=== PATIENT | female | born 1980 | race Two or more races ===

== ENCOUNTER 2017-02-13 13:06 | Emergency (ER) | payer OTHER ==
[~2017-02-13] VITALS: Ht 165.1 cm; Wt 90.7 kg
[~2017-02-13 13:06] MED LIST: HYDR25TA4 PO; LEVO75TA11 PO
--- NOTE | 2017-02-13 13:47 | NUR ---
MADI FROM HOME DT VAGINAL SPOTTING AND ABDOMINAL CRAMPS,. PATIENT IS 3 WEEKS PREGANANT. PATIENT IN NO DISTRESS. AFEBRILE. VSS
[2017-02-13 13:58] LABS: BASOPHILS % (AUTO) 0.2 % (0.0-2.0); EOSINOPHILS # (AUTO) 0.1 /CMM (0.0-0.7); EOSINOPHILS % (AUTO) 0.7 % (0.0-6.0); HEMATOCRIT 39 % (33-45); HEMOGLOBIN 13.4 g/dL (11.5-14.8); LYMPHOCYTES # (AUTO) 2.1 /CMM (0.8-4.8); LYMPHOCYTES % (AUTO) 27.2 % (20.0-44.0); MEAN CORPUSCULAR HEMOGLOBIN 30 PG (26.0-33.0); MEAN CORPUSCULAR HGB CONC 34 g/dl (31.0-36.0); MEAN CORPUSCULAR VOLUME 89 fL (82-100); MONOCYTES # (AUTO) 0.3 /CMM (0.1-1.30); MONOCYTES % (AUTO) 4.2 % (2.0-12.0); NEUTROPHILS # (AUTO) 5.2 /CMM (1.8-8.9); NEUTROPHILS % (AUTO) 67.7 % (43.0-81.0); PLATELET COUNT (AUTO) 400 /CMM (150-450); RDW COEFFICIENT OF VARIATION 11.7 (11.5-15.0); RED BLOOD CELL COUNT(AUTO) 4.41 MIL/uL (4.0-5.2); WHITE BLOOD COUNT (AUTO) 7.7 K/uL (4.3-11.0)
[2017-02-13] MEDS ORDERED: IV NS 0.9% 1,000 ML BAG IV ONE (14:00)
[2017-02-13 14:07] LABS: CALCIUM, SERUM 8.6 mg/dL (8.5-10.1); CREATININE 0.6 mg/dL (0.6-1.3); POTASSIUM 4.2 mmol/L (3.5-5.1)
[2017-02-13 14:11] LABS: INR 0.84 (0.87-1.13); PROTHROMBIN TIME 8.7 SECS (9.5-12.7)
--- NOTE | 2017-02-13 15:25 | NUR ---
IV removed. Catheter intact and site benign. Pressure and 4x4 applied to site. No bleeding noted.
--- NOTE | 2017-02-13 15:25 | NUR ---
Patient discharged to home in stable condition. Written and verbal after care instructions given. Patient verbalizes understanding of instruction.
[2017-02-13 15:49] VITALS: BP 160/89
== END 2017-02-13 15:49 | disposition home or self-care (01) ==
LOC: ER 13:08
DX: N93.8 Other specified abnormal uterine and vaginal bleeding (principal); I10 Essential (primary) hypertension; E11.9 Type 2 diabetes mellitus without complications; Z90.49 Acquired absence of other specified parts of digestive tract
CPT/HCPCS: 36415; 76856; 80048; 84702; 85025; 85730; 96360; 99285; A4606; Z7610

== ENCOUNTER 2017-02-24 14:53 | Emergency (ER) | payer OTHER ==
[~2017-02-24] VITALS: Ht 152.4 cm; Wt 89.8 kg
--- NOTE | 2017-02-24 15:11 | NUR ---
PT BIBRA TO ER BED 09. 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 WAS GIVEN NITRO AND ASP W/ MINIMAL RELIEF. PT IS ALSO C/O ABDOMINAL DISCOMFORT. SYMPTOMS STARTED AFTER SMOKING A CIGARETTE WHICH SHE SUSPECTS THAT ITS LACED. GOWNED AND PLACED ON MONITOR. NAD NOTED. AWAITING MD SILVERMAN.
--- NOTE | 2017-02-24 15:25 | NUR ---
DR CORREIA AT BEDSIDE FOR EVAL.
--- NOTE | 2017-02-24 15:42 | NUR ---
PIPE FITTER MARINE AT BEDSIDE FOR BLOOD DRAW.
[2017-02-24 15:51] LABS: BASOPHILS % (AUTO) 0.5 % (0.0-2.0); EOSINOPHILS # (AUTO) 0.1 /CMM (0.0-0.7); EOSINOPHILS % (AUTO) 1.2 % (0.0-6.0); HEMATOCRIT 43 % (33-45); HEMOGLOBIN 14.6 g/dL (11.5-14.8); LYMPHOCYTES # (AUTO) 2.2 /CMM (0.8-4.8); LYMPHOCYTES % (AUTO) 24.8 % (20.0-44.0); MEAN CORPUSCULAR HEMOGLOBIN 31 PG (26.0-33.0); MEAN CORPUSCULAR HGB CONC 34 g/dl (31.0-36.0); MEAN CORPUSCULAR VOLUME 90 fL (82-100); MONOCYTES # (AUTO) 0.3 /CMM (0.1-1.30); NEUTROPHILS # (AUTO) 6.2 /CMM (1.8-8.9); NEUTROPHILS % (AUTO) 70.5 % (43.0-81.0); PLATELET COUNT (AUTO) 418 /CMM (150-450); RDW COEFFICIENT OF VARIATION 11.7 (11.5-15.0); RED BLOOD CELL COUNT(AUTO) 4.74 MIL/uL (4.0-5.2); WHITE BLOOD COUNT (AUTO) 8.8 K/uL (4.3-11.0)
[2017-02-24 16:00] LABS: CALCIUM, SERUM 8.9 mg/dL (8.5-10.1); CARBON DIOXIDE 29 mmol/L (21-32); CHLORIDE 104 mmol/L (98-107); CREATININE 0.7 mg/dL (0.6-1.3); GLUCOSE 110 mg/dL (74-106); SODIUM SERUM 139 mmol/L (136-145); UREA NITROGEN, BLOOD 27 mg/dL (7-18)
[2017-02-24 16:01] LABS: ALCOHOL, BLOOD < 3 mg/dL (0-0)
--- NOTE | 2017-02-24 16:31 | NUR ---
Patient discharged to home in stable condition. Written and verbal after care instructions given. Patient verbalizes understanding of instruction.IV removed. Catheter intact and site benign. Pressure and 4x4 applied to site. No bleeding noted.
[2017-02-24 16:32] VITALS: BP 125/84
== END 2017-02-24 16:34 | disposition home or self-care (01) ==
LOC: ER 14:57
DX: F15.10 Other stimulant abuse, uncomplicated (principal); R07.89 Other chest pain; I10 Essential (primary) hypertension; E11.9 Type 2 diabetes mellitus without complications; Z90.49 Acquired absence of other specified parts of digestive tract
CPT/HCPCS: 36415; 80048; 80305; 85025; 93005; 99285; A4606; G0480; Z7610

== ENCOUNTER 2017-06-23 16:14 | Emergency (ER) | payer OTHER ==
[~2017-06-23] VITALS: Ht 152.4 cm; Wt 131.5 kg
--- NOTE | 2017-06-23 16:28 | NUR ---
37 yo female bb ra from home. patient is alert and oriented, patient states at 1440 today she was unable to lift her right arm and her right leg. no facial deficit noted at this time. patient gowned,placed on conveyor monitor. awaiting order from provider
--- NOTE | 2017-06-23 16:30 | NUR ---
18g right ac iv started, blood sample obtained and sent to lab
--- NOTE | 2017-06-23 16:37 | NUR ---
md caldera at bed side for eval
--- NOTE | 2017-06-23 16:39 | NUR ---
CALLED TELESTROKE HOTLINE SPOKE WITH PARKER, EXEPCTING A CALL BACK FROM DR REYES.
--- NOTE | 2017-06-23 16:39 | NUR ---
transported pt to ct
[2017-06-23] MEDS ORDERED: IOHEXOL-350 100 ML VIAL IV ONE (16:40)
[2017-06-23] MEDS ORDERED: CT SWABBABLE VALVE TRANS SET 1 EA INFUS.SET MC ONE (16:40)
[2017-06-23 16:43] LABS: BASOPHILS % (AUTO) 0.6 % (0.0-2.0); EOSINOPHILS % (AUTO) 0.7 % (0.0-6.0); HEMATOCRIT 38 % (33-45); HEMOGLOBIN 13.1 g/dL (11.5-14.8); LYMPHOCYTES # (AUTO) 2.5 /CMM (0.8-4.8); LYMPHOCYTES % (AUTO) 31.9 % (20.0-44.0); MEAN CORPUSCULAR HGB CONC 34 g/dl (31.0-36.0); MEAN CORPUSCULAR VOLUME 90 fL (82-100); MONOCYTES # (AUTO) 0.4 /CMM (0.1-1.30); MONOCYTES % (AUTO) 5.3 % (2.0-12.0); NEUTROPHILS # (AUTO) 4.9 /CMM (1.8-8.9); NEUTROPHILS % (AUTO) 61.5 % (43.0-81.0); PLATELET COUNT (AUTO) 347 /CMM (150-450); RDW COEFFICIENT OF VARIATION 11.6 (11.5-15.0); RED BLOOD CELL COUNT(AUTO) 4.25 MIL/uL (4.0-5.2); WHITE BLOOD COUNT (AUTO) 7.9 K/uL (4.3-11.0)
--- NOTE | 2017-06-23 16:44 | NUR ---
DR REYES CALLED BACK ON THE PHONE WITH DR FU.
--- NOTE | 2017-06-23 16:46 | NUR ---
DR MORELAND CALLED ON THE PHONE WITH DR FU.
--- NOTE | 2017-06-23 16:52 | NUR ---
return from ct
[2017-06-23 16:53] LABS: CALCIUM, SERUM 8.9 mg/dL (8.5-10.1); CARBON DIOXIDE 26 mmol/L (21-32); CHLORIDE 107 mmol/L (98-107); CREATININE 0.6 mg/dL (0.6-1.3); GLUCOSE 115 mg/dL (74-106); POTASSIUM 4.3 mmol/L (3.5-5.1); SODIUM SERUM 141 mmol/L (136-145); UREA NITROGEN, BLOOD 21 mg/dL (7-18)
--- NOTE | 2017-06-23 16:55 | NUR ---
md baldomero mccormack Tele Nuerologist is on live doing her exam
[2017-06-23 16:58] LABS: INR 0.85 (0.85-1.15)
[2017-06-23 17:00] LABS: CHOLESTEROL 210 mg/dL (<200); HDL CHOLESTEROL 51 mg/dL (40-60); LDL 135 mg/dL (0-99); TRIGLYCERIDES 221 mg/dL (30-150)
[2017-06-23] MEDS ORDERED: IV NS 0.9% 1,000 ML BAG IV ONE (17:00)
[2017-06-23 17:01] LABS: TROPONIN I < 0.017 ng/mL (0.00-0.056)
[2017-06-23 17:05] LABS: ALANINE AMINOTRANSFERASE 24 U/L (12-78); ALBUMIN 3.4 g/dL (3.4-5.0); ALKALINE PHOSPHATASE 58 U/L (46-116); ASPARTATE AMINOTRANSFERASE 13 U/L (15-37); BILIRUBIN,DIRECT 0.1 mg/dL (0.0-0.2); BILIRUBIN,TOTAL 0.4 mg/dL (0.2-1.0); TOTAL PROTEIN, SERUM 6.9 g/dL (6.4-8.2)
[2017-06-23] MEDS ORDERED: ALTEPLASE 100 MG/VIAL VIAL IV ONE (17:30)
--- NOTE | 2017-06-23 17:34 | NUR ---
admin bolus tpa 9 mg over 1 min followed by tpa drip, 91mg over 1 hour
--- NOTE | 2017-06-23 17:41 | NUR ---
patient states she can move more of her right hand. will continue to monitor
--- NOTE | 2017-06-23 17:44 | NUR ---
KARINE FROM THE [facility] CALLED, THEY WILL BE TRANSFERING THE PATIENT IN 15 MINS.
[2017-06-23] MEDS ORDERED: ENALAPRILAT DIHYD. (2.5MG/ML) 1.25 MG/ML VIAL IV ONE (17:46)
--- NOTE | 2017-06-23 17:46 | NUR ---
notified md caldera about high blood pressure. per admin 1.25 mg vasotec iv once. medicated pt as ordered
[2017-06-23 17:50] VITALS: BP 186/130
[2017-06-23] MEDS ORDERED: ENALAPRILAT INJ (1.25 MG/ML) 1.25 MG/ML VIAL IV PRN (18:00)
--- NOTE | 2017-06-23 18:10 | NUR ---
patient states her symptoms has completly resolved. med notified
--- NOTE | 2017-06-23 18:21 | NUR ---
ANN friedman for [facility] transport is at bed side for report.
--- NOTE | 2017-06-23 18:30 | NUR ---
patient left via [facility] to [facility]
== END 2017-06-23 18:34 ==
LOC: ER 16:19
DX: I63.9 Cerebral infarction, unspecified (principal); E11.9 Type 2 diabetes mellitus without complications; I11.0 Hypertensive heart disease with heart failure; I50.9 Heart failure, unspecified; Z76.5 Malingerer [conscious simulation]
CPT/HCPCS: 36415; 70450-TC; 70496-TC; 70498-TC; 71045-TC; 80048-TC; 80061-TC; 80076-TC; 84484-TC; 84703-TC; 85025-TC; 85730-TC; A4606; J2997; J3490; J7030; Q9967; Z7610

== ENCOUNTER 2021-04-29 23:03 | Emergency (ER) | payer OTHER ==
[~2021-04-29] VITALS: Ht 152.4 cm; Wt 104.3 kg
--- NOTE | 2021-04-30 00:02 | NUR ---
BIBS C/O LOWER ABDOMINAL PAIN X1DAY +V/D "UNABLE TO HOLD ANYTHING DOWN". PATIENT ALERT AND ORIENTED X3. AMBULATORY WITH NON LABORED BREATHING IN BED 09 ON MONITOR AWAITING MD SILVERMAN.
--- NOTE | 2021-04-30 00:30 | NUR ---
PT SEEN BY DR. MULLIGAN
[2021-04-30] MEDS ORDERED: ONDANSETRON HCL/PF 4 MG/2 ML VIAL ONE (00:42)
[2021-04-30] MEDS: ONDANSETRON HCL/PF 4 MG/2 ML VIAL IVP ONE (00:48)
[2021-04-30] MEDS: IV NS 0.9% 1,000 ML BAG IV ONE (00:49)
--- NOTE | 2021-04-30 00:49 | NUR ---
RAC #20G S/L; PATENT AND INTACT. BLOOD COLLECTED AND SENT TO LAB
[2021-04-30] MEDS ORDERED: HYDROMORPHONE 1 MG/1 ML DISP.SYRIN ONE (00:52)
[2021-04-30 00:54] LABS: BILIRUBIN,URINE NEGATIVE (NEGATIVE); COLOR,URINE DARK YELLOW (YELLOW); LEUKOCYTE ESTERASE ,URINE NEGATIVE (NEGATIVE); NITRITE, URINE NEGATIVE (NEGATIVE); PROTEIN,URINE NEGATIVE (NEGATIVE); UGLUCOSE NEGATIVE (NEGATIVE); UROBILINOGEN,URINE 0.2 EU/dL (0.2)
[2021-04-30] MEDS: HYDROMORPHONE 1 MG/1 ML DISP.SYRIN IV ONE (00:54)
[2021-04-30 00:57] LABS: BASOPHILS % (AUTO) 0.5 % (0.0-2.0); HEMATOCRIT 41 % (33-45); HEMOGLOBIN 13.1 g/dL (11.5-14.8); LYMPHOCYTES # (AUTO) 1.9 K/uL (0.8-4.8); LYMPHOCYTES % (AUTO) 20.7 % (20.0-44.0); MEAN CORPUSCULAR HGB CONC 32 g/dl (31.0-36.0); MEAN CORPUSCULAR VOLUME 93 fL (82-100); MONOCYTES # (AUTO) 0.5 K/uL (0.1-1.30); MONOCYTES % (AUTO) 5.1 % (2.0-12.0); NEUTROPHILS # (AUTO) 6.6 K/uL (1.8-8.9); NEUTROPHILS % (AUTO) 72.7 % (43.0-81.0); PLATELET COUNT (AUTO) 322 K/uL (150-450); RED BLOOD CELL COUNT(AUTO) 4.36 MIL/uL (4.0-5.2); WHITE BLOOD COUNT (AUTO) 9.1 K/uL (4.3-11.0)
[2021-04-30 01:03] LABS: CALCIUM, SERUM 9.1 mg/dL (8.5-10.1); CREATININE 0.9 mg/dL (0.6-1.3)
[2021-04-30 01:09] LABS: ALBUMIN 3.3 g/dL (3.4-5.0); BILIRUBIN,DIRECT 0.1 mg/dL (0.0-0.2); BILIRUBIN,TOTAL 0.5 mg/dL (0.2-1.0); TOTAL PROTEIN, SERUM 6.9 g/dL (6.4-8.2)
[2021-04-30] MEDS ORDERED: ONDA4TAB5 PO (02:44)
[2021-04-30] MEDS ORDERED: DICY20TA11 PO (02:44)
--- NOTE | 2021-04-30 02:47 | NUR ---
Patient discharged to home in stable condition. Written and verbal after care instructions given. Patient verbalizes understanding of instruction.
[2021-04-30 02:48] VITALS: BP 139/98
[2021-04-30 02:52] LABS: BACTERIA,URINE None seen /HPF (None Seen); CALCIUM OXALATE CRYSTALS,UR Moderate /HPF (None Seen); RBC,URINE 0-2 /HPF (0-2); WBC,URINE 0-2 /HPF (0-3)
== END 2021-04-30 02:53 | disposition home or self-care (01) ==
LOC: ER 23:06
DX: R10.31 Right lower quadrant pain (principal); R10.32 Left lower quadrant pain; R19.7 Diarrhea, unspecified; R11.10 Vomiting, unspecified; I10 Essential (primary) hypertension; E11.9 Type 2 diabetes mellitus without complications; Z98.890 Other specified postprocedural states; Z90.49 Acquired absence of other specified parts of digestive tract; Z79.899 Other long term (current) drug therapy
CPT/HCPCS: 36415; 80048; 80076; 81001; 83690; 84702; 85025; 85730; 96361; 96374; 96375; 99284; J1170; J2405; J7030